=== PATIENT | male | born 1935 | race Caucasian/White ===

== ENCOUNTER 2019-04-01 10:34 | Emergency (ER) | payer MEDICARE, OTHER ==
[~2019-04-01] VITALS: Ht 180.3 cm; Wt 80.0 kg
[~2019-04-01 10:34] MED LIST: BIMA2.5D BOTH EYES; CLO15CR1 TOP; COMBIG5 BOTH EYES; DOXA8TAB65 ORAL; FURO20TA3 ORAL; GLIM2TAB2 ORAL; INSU100I31 SC; INSU3INS2 SC; LISI10TA2 ORAL; LOVA40TA ORAL; METF-849; REPA2TAB8 ORAL; TAMS-14 PO
[2019-04-01 10:36] VITALS: Ht 180.3 cm; Wt 80.0 kg
[2019-04-01 15:00] VITALS: BP 120/81; PULSE 85; RESP 15
[2019-04-01] MEDS ORDERED: SOD CHLORIDE 0.9% 500 ML IV ONE (15:00)
== END 2019-04-01 21:28 | disposition home or self-care (01) ==
LOC: E/R 10:34
DX: E86.0 Dehydration (principal); I12.9 Hypertensive chronic kidney disease with stage 1 through stage 4 chronic kidney disease, or unspecified chronic kidney disease; N18.9 Chronic kidney disease, unspecified; E11.22 Type 2 diabetes mellitus with diabetic chronic kidney disease; D64.9 Anemia, unspecified; R51 Headache; Z79.4 Long term (current) use of insulin; Z87.891 Personal history of nicotine dependence
CPT/HCPCS: 36415; 70450; 71045; 72125; 73562; 80048; 80307; 82962; 84484; 85025; 93005